=== PATIENT | female | born 2000 | race Asian ===

== ENCOUNTER 2025-09-22 06:01 | Emergency (ER) | payer OTHER ==
[~2025-09-22] VITALS: Ht 160 cm; Wt 59.1 kg
[2025-09-22 09:46] VITALS: BP 92/67; PULSE 108; RESP 24; TEMP 98.6; O2SAT 99
== END 2025-09-22 07:15 | disposition left against medical advice (07) ==
LOC: EMS 06:15
DX: K62.89 Other specified diseases of anus and rectum (principal); K62.5 Hemorrhage of anus and rectum; R00.0 Tachycardia, unspecified
CPT/HCPCS: 99282; Z7502